=== PATIENT | male | born 1955 | race African-American/Black ===

== ENCOUNTER 2021-04-29 15:55 | Inpatient (IN) ==
[2021-04-29 16:15] LABS: Basophils % 0.3 % (0.0-0.8); Eosinophils # 0.4 10*3/uL (0.0-0.87); Eosinophils % 5.5 % (0.00-10.9); Hematocrit 35.9 VOL% (42.0-52.0); Hemoglobin 11.6 GM/DL (14.0-18.0); Immature Granulocytes % 0.4 %; Immature Granulocytes Absolute 0.03 #; Lymphocytes # 1.3 10*3/uL (1.4-4.0); Lymphocytes % 18.8 % (21.2-54.2); Mean Corpuscular HGB Conc 32.3 GM/DL (32-36); Mean Corpuscular Volume 93.2 FL (87-102); Mean Platelet Volume 11.1 FL (9.6-12.0); Monocytes % 9.9 % (1.7-12.7); Neutrophils % 65.1 % (38.7-73.9); Platelet Count 240 T/CUMM (130-400); Red Blood Count 3.85 MC/CUMM (3.8-5.5); White Blood Count 7.1 T/CUMM (4-12)
[2021-04-29 16:42] LABS: Albumin 3.8 G/DL (3.4-5.0); Bilirubin,Total 0.5 MG/DL (0.2-1.0); Calcium 9.8 MG/DL (8.5-10.1); Osmolality,Calculated 277.1 MOS/KG (273-304); Potassium 3.8 MMOL/L (3.5-5.1); Total Protein 8.9 G/DL (6.4-8.2)
[2021-04-29] MEDS ORDERED: ACETAMINOPHEN 325 MG TABLET PO PRN (23:19)
[2021-04-29] MEDS: hydrALAZINE 25 MG TABLET PO SCH (23:26)
[2021-04-30 02:04] LABS: Basophils % 0.4 % (0.0-0.8); Eosinophils # 0.3 10*3/uL (0.0-0.87); Eosinophils % 4.9 % (0.00-10.9); Hematocrit 31.3 VOL% (42.0-52.0); Hemoglobin 10.3 GM/DL (14.0-18.0); Immature Granulocytes % 0.1 %; Immature Granulocytes Absolute 0.01 #; Lymphocytes # 1.2 10*3/uL (1.4-4.0); Lymphocytes % 17.4 % (21.2-54.2); Mean Corpuscular HGB Conc 32.9 GM/DL (32-36); Mean Corpuscular Volume 92.6 FL (87-102); Mean Platelet Volume 11.4 FL (9.6-12.0); Monocytes % 11.5 % (1.7-12.7); Neutrophils % 65.7 % (38.7-73.9); Platelet Count 214 T/CUMM (130-400); Red Blood Count 3.38 MC/CUMM (3.8-5.5); Red Cell Distribution Width 15.9 % (9.3-17.3); White Blood Count 6.9 T/CUMM (4-12)
[2021-04-30 02:19] LABS: Osmolality,Calculated 279.1 MOS/KG (273-304); Potassium 4.4 MMOL/L (3.5-5.1)
[2021-04-30] MEDS ORDERED: DIAZEPAM 5 MG TABLET PO ONE (07:15)
[2021-04-30] MEDS ORDERED: VANCOMYCIN 500 MG VIAL IRRIG ONE (07:15)
[2021-04-30] MEDS ORDERED: VANCOMYCIN INJ 1,000 MG in SODIUM CHLORIDE 0.9% 250 ML IV ONE (07:15)
[2021-04-30] MEDS ORDERED: diphenhydrAMINE CAP 50 MG CAPSULE PO ONE (07:15)
[2021-04-30] MEDS ORDERED: HEPARIN IV ONE (07:54)
[2021-04-30] MEDS ORDERED: MIDAZOLAM 2 MG/2 ML VIAL ONE (07:54)
[2021-04-30] MEDS ORDERED: LIDOCAINE 1% 20 ML VIAL ONE (07:54)
[2021-04-30] MEDS ORDERED: fentaNYL 100 MCG/2 ML VIAL ONE (07:54)
[2021-04-30] MEDS ORDERED: NACL IV ONE (07:54)
[2021-04-30] MEDS: amLODIPine 10 MG TABLET PO SCH (08:06)
[2021-04-30] MEDS: CINACALCET 30 MG TABLET PO SCH (08:06)
[2021-04-30] MEDS: PANTOPRAZOLE 40 MG TABLET PO SCH (08:06)
[2021-04-30] MEDS ORDERED: DEXTROSE 50% 25 GM/50 ML VIAL IV PRN (09:13)
[2021-04-30] MEDS ORDERED: GLUCAGON 1 MG VIAL IM PRN (09:13)
[2021-04-30] MEDS ORDERED: ZALEPLON 5 MG CAPSULE PO PRN (09:13)
[2021-04-30] MEDS ORDERED: ONDANSETRON 4 MG/2 ML VIAL IV PRN (09:13)
[2021-04-30] MEDS ORDERED: NITROGLYCERIN SL 0.4 MG TABLET SL PRN (09:13)
[2021-04-30] MEDS: SEVELAMER CARBONATE 800 MG TABLET PO SCH ×3 (10:05→16:19)
[2021-04-30] MEDS: hydrALAZINE 25 MG TABLET PO SCH ×3 (10:22→21:02)
[2021-04-30] MEDS: INSULIN GLARGINE 100 UNIT/ML SUBCUT SCH (12:05)
[2021-04-30] MEDS: ROSUVASTATIN 20 MG TABLET PO SCH (21:02)
[2021-05-01 04:28] LABS: Basophils % 0.4 % (0.0-0.8); Eosinophils # 0.3 10*3/uL (0.0-0.87); Eosinophils % 3.7 % (0.00-10.9); Hematocrit 35.1 VOL% (42.0-52.0); Hemoglobin 11.5 GM/DL (14.0-18.0); Immature Granulocytes % 0.2 %; Immature Granulocytes Absolute 0.02 #; Lymphocytes % 12.7 % (21.2-54.2); Mean Corpuscular HGB Conc 32.8 GM/DL (32-36); Mean Corpuscular Volume 92.4 FL (87-102); Mean Platelet Volume 11.6 FL (9.6-12.0); Monocytes % 7.8 % (1.7-12.7); Neutrophils % 75.2 % (38.7-73.9); Platelet Count 241 T/CUMM (130-400); Red Cell Distribution Width 15.9 % (9.3-17.3); White Blood Count 8.1 T/CUMM (4-12)
[2021-05-01 04:43] LABS: Calcium 8.9 MG/DL (8.5-10.1); Potassium 5.2 MMOL/L (3.5-5.1)
[2021-05-01] MEDS: CINACALCET 30 MG TABLET PO SCH (09:00)
[2021-05-01] MEDS: ASPIRIN EC 81 MG TABLET PO SCH (09:08)
[2021-05-01] MEDS: hydrALAZINE 25 MG TABLET PO SCH ×3 (09:09→20:29)
[2021-05-01] MEDS: amLODIPine 10 MG TABLET PO SCH (09:09)
[2021-05-01] MEDS: PANTOPRAZOLE 40 MG TABLET PO SCH (09:09)
[2021-05-01] MEDS: INSULIN GLARGINE 100 UNIT/ML SUBCUT SCH (09:15)
[2021-05-01] MEDS: SEVELAMER CARBONATE 800 MG TABLET PO SCH ×3 (09:15→16:14)
[2021-05-01] MEDS ORDERED: DOCUSATE SODIUM 100 MG CAPSULE PO PRN (18:05)
[2021-05-01] MEDS: ROSUVASTATIN 20 MG TABLET PO SCH (20:30)
[2021-05-02 04:43] LABS: Basophils % 0.5 % (0.0-0.8); Eosinophils # 0.4 10*3/uL (0.0-0.87); Eosinophils % 5.2 % (0.00-10.9); Hematocrit 32.4 VOL% (42.0-52.0); Hemoglobin 10.8 GM/DL (14.0-18.0); Immature Granulocytes % 0.4 %; Immature Granulocytes Absolute 0.03 #; Lymphocytes # 1.5 10*3/uL (1.4-4.0); Lymphocytes % 18.1 % (21.2-54.2); Mean Corpuscular HGB Conc 33.3 GM/DL (32-36); Mean Corpuscular Volume 91.8 FL (87-102); Mean Platelet Volume 11.1 FL (9.6-12.0); Monocytes % 10.7 % (1.7-12.7); Neutrophils % 65.1 % (38.7-73.9); Platelet Count 210 T/CUMM (130-400); Red Blood Count 3.53 MC/CUMM (3.8-5.5); Red Cell Distribution Width 15.9 % (9.3-17.3); White Blood Count 8.5 T/CUMM (4-12)
[2021-05-02 04:47] LABS: ABG Base Excess 6.5 MMOL/L (-2.5-2.5); ABG HCO3 30.4 MMOL/L (20-26); ABG Oxygen Saturation 96.9 % (95-100); ABG PCO2 42.7 MM HG (35-48); ABG PH 7.468 (7.35-7.45); ABG PO2 91.9 MM HG (80-95); ABG TCO2 27.8 MMOL/L (23-27); Allen Test Positive; Pt O2 Delivery Device Room Air
[2021-05-02 05:08] LABS: Alanine Aminotransferase 9 U/L (16-61); Albumin 2.9 G/DL (3.4-5.0); Alkaline Phosphatase 77 U/L (45-117); Aspartate Amino Transferase 8 U/L (0-37); Blood Urea Nitrogen 64 MG/DL (7-18); Calcium 8.8 MG/DL (8.5-10.1); Carbon Dioxide 30 MMOL/L (21-32); Estimated Glom Filtration Rate 5 ML/MIN; Glucose 77 MG/DL (74-106); Potassium 5.2 MMOL/L (3.5-5.1); Sodium 136 MMOL/L (136-145); Total Protein 7.5 G/DL (6.4-8.2)
[2021-05-02] MEDS: SEVELAMER CARBONATE 800 MG TABLET PO SCH ×3 (08:25→17:30)
[2021-05-02] MEDS: amLODIPine 10 MG TABLET PO SCH (08:26)
[2021-05-02] MEDS: ASPIRIN EC 81 MG TABLET PO SCH (08:26)
[2021-05-02] MEDS: PANTOPRAZOLE 40 MG TABLET PO SCH (08:26)
[2021-05-02] MEDS: hydrALAZINE 25 MG TABLET PO SCH ×3 (08:27→20:05)
[2021-05-02] MEDS: CINACALCET 30 MG TABLET PO SCH (08:27)
[2021-05-02] MEDS: CHLORHEXIDINE 0.12% ORAL RINSE 60 ML BOTTLE SWISH/SPIT SCH ×2 (10:31→20:05)
[2021-05-02] MEDS: CHLORHEXIDINE 4% SOLN 118 ML BOTTLE TOP SCH ×2 (17:45→20:06)
[2021-05-02] MEDS: INSULIN REGULAR 100 UNIT/ML SUBCUT SCH ×3 (18:31→20:05)
[2021-05-02] MEDS: ROSUVASTATIN 20 MG TABLET PO SCH (20:05)
[2021-05-03] MEDS ORDERED: PAPAVERINE 60 MG/2 ML VIAL ONE (04:19)
[2021-05-03] MEDS ORDERED: VANCOMYCIN 500 MG VIAL ONE (04:20)
[2021-05-03] MEDS ORDERED: VANCOMYCIN 1,000 MG VIAL ONE (04:20)
[2021-05-03] MEDS: CHLORHEXIDINE 4% SOLN 118 ML BOTTLE TOP SCH (05:00)
[2021-05-03] MEDS ORDERED: CEFUROXIME INJ 1,500 MG in SODIUM CHLORIDE 0.9% 100 ML IV ONE (05:00)
[2021-05-03 05:04] LABS: Basophils # 0.1 10*3/uL (0.0-0.2); Basophils % 0.6 % (0.0-0.8); Eosinophils # 0.4 10*3/uL (0.0-0.87); Hematocrit 35.6 VOL% (42.0-52.0); Hemoglobin 11.5 GM/DL (14.0-18.0); Immature Granulocytes % 0.4 %; Immature Granulocytes Absolute 0.03 #; Lymphocytes # 1.2 10*3/uL (1.4-4.0); Lymphocytes % 14.4 % (21.2-54.2); Mean Corpuscular HGB Conc 32.3 GM/DL (32-36); Mean Corpuscular Volume 93.4 FL (87-102); Mean Platelet Volume 12.3 FL (9.6-12.0); Monocytes % 9.6 % (1.7-12.7); Platelet Count 230 T/CUMM (130-400); Red Blood Count 3.81 MC/CUMM (3.8-5.5); Red Cell Distribution Width 15.8 % (9.3-17.3); White Blood Count 8.2 T/CUMM (4-12)
[2021-05-03 05:31] LABS: Calcium 9.7 MG/DL (8.5-10.1); Osmolality,Calculated 276.2 MOS/KG (273-304); Potassium 4.9 MMOL/L (3.5-5.1)
[2021-05-03] MEDS ORDERED: NITROGLYCERIN DRIP 50 MG/250 ML BOTTLE IV ONE (05:37)
[2021-05-03] MEDS ORDERED: HEPARIN/NACL 0.9% 2 UNITS/ML 1,000 UNIT/500 ML BAG IV ONE (05:37)
[2021-05-03] MEDS ORDERED: SODIUM CHLORIDE 0.9% 2,000 ML IV ONE ×2 (05:37→11:36)
[2021-05-03] MEDS ORDERED: PHENYLEPHRINE DRIP 20 MG/250 ML PREMIX IV ONE (05:37)
[2021-05-03] MEDS ORDERED: MIDAZOLAM 10 MG/2 ML VIAL ONE ×4 (05:38)
[2021-05-03] MEDS ORDERED: AMINOCAPROIC ACID 5,000 MG/20 ML VIAL ONE (05:42)
[2021-05-03] MEDS ORDERED: SODIUM CHLORIDE 0.9% 250 ML IV ONE ×3 (05:42→17:06)
[2021-05-03] MEDS ORDERED: DIAZEPAM 5 MG TABLET PO ONE (05:45)
[2021-05-03] MEDS ORDERED: SODIUM CHLORIDE 0.9% 100 ML IV ONE (05:47)
[2021-05-03] MEDS ORDERED: SUFentanil 250 MCG/5 ML AMP ONE ×4 (05:47)
[2021-05-03] MEDS ORDERED: VECURONIUM 10 MG VIAL IV ONE ×2 (05:57→11:39)
[2021-05-03] MEDS ORDERED: LIDOCAINE 2% 5 ML VIAL ONE ×2 (06:02→12:54)
[2021-05-03] MEDS ORDERED: ETOMIDATE 40 MG/20 ML VIAL IV ONE (06:03)
[2021-05-03] MEDS ORDERED: ePHEDrine 50 MG/ML VIAL ONE (06:07)
[2021-05-03] MEDS ORDERED: EPINEPHrine 1 MG/ML VIAL ONE (06:08)
[2021-05-03] MEDS ORDERED: CALCIUM CHLORIDE 1,000 MG/10 ML VIAL IV ONE (06:13)
[2021-05-03] MEDS ORDERED: MINERAL OIL/PETROLATUM OPH OINT 3.5 GM TUBE ONE (06:16)
[2021-05-03] MEDS: amLODIPine 10 MG TABLET PO SCH (09:05)
[2021-05-03] MEDS: SEVELAMER CARBONATE 800 MG TABLET PO SCH ×2 (09:05→12:12)
[2021-05-03] MEDS: CHLORHEXIDINE 0.12% ORAL RINSE 60 ML BOTTLE SWISH/SPIT SCH ×2 (09:05→21:38)
[2021-05-03] MEDS: CINACALCET 30 MG TABLET PO SCH (09:05)
[2021-05-03] MEDS: hydrALAZINE 25 MG TABLET PO SCH (09:05)
[2021-05-03] MEDS: INSULIN REGULAR 100 UNIT/ML SUBCUT SCH ×2 (09:05→12:12)
[2021-05-03] MEDS: PANTOPRAZOLE 40 MG TABLET PO SCH (09:05)
[2021-05-03] MEDS: ASPIRIN EC 81 MG TABLET PO SCH (09:05)
[2021-05-03 09:24] LABS: Hematocrit Heart Surgery 18.1 PERCENT (42-52); PH Patient Temp Venous 7.481; PO2 Patient Temp Venous 51.9 MM HG; VBG Base Excess -8.8 MEQ/L (0-4); VBG HCO3 17.1 MEQ/L (24-28); VBG Oxygen Saturation 85.6 %; VBG PCO2 18.8 MMHG (41-51); VBG PH 7.481; VBG PO2 51.9 MMHG (17-40); VBG Total CO2 13.5 MMOL/L
[2021-05-03 09:25] LABS: PCO2 Patient Temp Venous 18.8 MM HG
[2021-05-03 09:26] LABS: Hemoglobin Heart Surgery 5.7 G/DL (14.0-18.0); Potassium Heart/CVR 2.3 MMOL/L (3.5-5.1)
[2021-05-03] MEDS ORDERED: CALCIUM CHLORIDE 1,000 MG/10 ML SYRINGE IV ONE (09:31)
[2021-05-03] MEDS ORDERED: SODIUM BICARBONATE 50 MEQ/50 ML VIAL IV ONE ×2 (09:31→12:55)
[2021-05-03] MEDS ORDERED: PHENYLEPHRINE DRIP 40 MG/250 ML PREMIX IV ONE (09:31)
[2021-05-03] MEDS ORDERED: EPINEPHrine 1 MG/10 ML SYRINGE ONE (09:47)
[2021-05-03] MEDS ORDERED: ALBUMIN IV ONE (09:47)
[2021-05-03 10:16] LABS: ABG Base Excess 2.8 MMOL/L (-2.5-2.5); ABG HCO3 25.9 MMOL/L (20-26); ABG Oxygen Saturation 99.1 % (95-100); ABG PO2 266.3 MM HG (80-95); Glucose Heart Surgery 91 MG/DL (74-106); Hemoglobin Heart Surgery 9.9 G/DL (14.0-18.0); Ionized Calcium Arterial 1.06 MMOL/L (1.21-1.46); PO2 Patient Temp Arterial 266.3 MM HG; Patient Temperature 37 CELCIUS; Potassium Heart/CVR 4.8 MMOL/L (3.5-5.1); Sodium Heart/CVR 133 MMOL/L (135-145)
[2021-05-03] MEDS ORDERED: diphenhydrAMINE 50 MG/1 ML VIAL ONE (10:28)
[2021-05-03] MEDS ORDERED: methylPREDNISolone SOD SUC 125 MG/2 ML VIAL ONE (10:28)
[2021-05-03] MEDS ORDERED: FAMOTIDINE 20 MG/2 ML VIAL IV ONE (10:29)
[2021-05-03 11:19] LABS: Hematocrit Heart Surgery 22.3 PERCENT (42-52); Hemoglobin Heart Surgery 7.1 G/DL (14.0-18.0); PCO2 Patient Temp Venous 31.6 MM HG; PH Patient Temp Venous 7.503; PO2 Patient Temp Venous 34.6 MM HG; Potassium Heart/CVR 5.1 MMOL/L (3.5-5.1); VBG PCO2 36.6 MMHG (41-51); VBG PH 7.458; VBG PO2 42.6 MMHG (17-40); VBG Total CO2 24.4 MMOL/L
[2021-05-03 11:51] LABS: Hematocrit Heart Surgery 24.3 PERCENT (42-52); Hemoglobin Heart Surgery 7.8 G/DL (14.0-18.0); PCO2 Patient Temp Venous 30.1 MM HG; PH Patient Temp Venous 7.479; Potassium Heart/CVR 4.6 MMOL/L (3.5-5.1); VBG Base Excess -0.6 MEQ/L (0-4); VBG HCO3 23.6 MEQ/L (24-28); VBG Oxygen Saturation 72.3 %; VBG PCO2 33.2 MMHG (41-51); VBG PH 7.449; VBG PO2 41.4 MMHG (17-40); VBG Total CO2 21.6 MMOL/L
[2021-05-03 12:45] LABS: ABG Base Excess 0.8 MMOL/L (-2.5-2.5); ABG HCO3 25.2 MMOL/L (20-26); ABG Oxygen Saturation 99.5 % (95-100); ABG PCO2 37.2 MM HG (35-48); ABG PH 7.434 (7.35-7.45); ABG TCO2 23.4 MMOL/L (23-27); Glucose Heart Surgery 156 MG/DL (74-106); Hematocrit Heart Surgery 23.8 PERCENT (42-52); Hemoglobin Heart Surgery 7.6 G/DL (14.0-18.0); Ionized Calcium Arterial 1.15 MMOL/L (1.21-1.46); PCO2 Patient Temp Arterial 37.2 MMHG; PH Patient Temp Arterial 7.434; Patient Temperature 37 CELCIUS; Potassium Heart/CVR 4.6 MMOL/L (3.5-5.1); Sodium Heart/CVR 137 MMOL/L (135-145)
[2021-05-03] MEDS ORDERED: THROMBIN TOPICAL (RECOMBINANT) 5,000 UNIT VIAL TOP ONE (12:47)
[2021-05-03] MEDS ORDERED: MANNITOL 100 GM/500 ML BAG IV ONE (12:54)
[2021-05-03] MEDS ORDERED: methylPREDNISolone SOD SUC 1,000 MG/8 ML VIAL ONE (12:54)
[2021-05-03] MEDS ORDERED: ALBUMIN 25% 25 GM/100 ML VIAL IV ONE (12:54)
[2021-05-03] MEDS ORDERED: DEXTROSE 5% KCL 20 MEQ 20 MEQ/1,000 ML BAG IV ONE (12:54)
[2021-05-03] MEDS ORDERED: MAGNESIUM SULFATE 5 GM/10 ML VIAL IV ONE (12:54)
[2021-05-03] MEDS ORDERED: HEPARIN 10,000 UNIT/10 ML VIAL ONE (12:55)
[2021-05-03] MEDS ORDERED: PROTAMINE SULFATE 250 MG/25 ML VIAL IV ONE (12:55)
[2021-05-03] MEDS ORDERED: PROTAMINE SULFATE 50 MG/5 ML VIAL IV ONE (12:55)
[2021-05-03] MEDS ORDERED: SEVOFLURANE 1 UNIT/15 MINUTE INH ONE (13:35)
[2021-05-03] MEDS: SODIUM CHLORIDE 0.45% 1,000 ML IV SCH ×2 (14:05)
[2021-05-03] MEDS ORDERED: POTASSIUM CHLORIDE RIDER 20 MEQ/100 ML PREMIX IV PRN (14:20)
[2021-05-03] MEDS ORDERED: INSULIN REGULAR DRIP 100 ML IV SCH (14:20)
[2021-05-03] MEDS ORDERED: MAGNESIUM SULF RIDER 4 GM/100 ML PREMIX IV PRN (14:20)
[2021-05-03] MEDS ORDERED: PHENYLEPHRINE DRIP 40 MG/250 ML PREMIX IV PRN (14:20)
[2021-05-03] MEDS ORDERED: NITROPRUSSIDE 100 MG in DEXTROSE 5% 250 ML IV PRN (14:20)
[2021-05-03] MEDS ORDERED: POTASSIUM CHLORIDE RIDER 10 MEQ/100 ML PREMIX IV PRN (14:20)
[2021-05-03] MEDS ORDERED: VECURONIUM 10 MG VIAL IV PRN ×2 (14:20)
[2021-05-03] MEDS ORDERED: CALCIUM CHLORIDE 1,000 MG/10 ML SYRINGE IV PRN (14:20)
[2021-05-03] MEDS ORDERED: INSULIN REGULAR 100 UNIT/ML IV PRN (14:20)
[2021-05-03] MEDS ORDERED: MAGNESIUM SULF RIDER 2 GM/50 ML PREMIX IV PRN (14:20)
[2021-05-03] MEDS ORDERED: CHLORHEXIDINE 4% SOLN 118 ML BOTTLE TOP PRN (14:20)
[2021-05-03] MEDS ORDERED: MIDAZOLAM 2 MG/2 ML VIAL IV PRN (14:20)
[2021-05-03] MEDS ORDERED: DEXTROSE 50% 25 GM/50 ML VIAL IV PRN ×2 (14:20)
[2021-05-03] MEDS ORDERED: LACTATED RINGERS 250 ML IV PRN (14:20)
[2021-05-03] MEDS ORDERED: ACETAMINOPHEN 650 MG SUPP RECTAL PRN (14:20)
[2021-05-03] MEDS ORDERED: MIDAZOLAM 10 MG/2 ML VIAL IV PRN (14:20)
[2021-05-03] MEDS ORDERED: MORPHINE 10 MG/1 ML VIAL IV PRN (14:20)
[2021-05-03] MEDS ORDERED: INSULIN REGULAR 100 UNIT/ML IV ONE (14:20)
[2021-05-03 14:39] LABS: Basophils % 0.3 % (0.0-0.8); Eosinophils # 0.1 10*3/uL (0.0-0.87); Eosinophils % 0.4 % (0.00-10.9); Hematocrit 23.2 VOL% (42.0-52.0); Hemoglobin 7.2 GM/DL (14.0-18.0); Immature Granulocytes % 0.7 %; Immature Granulocytes Absolute 0.08 #; Lymphocytes # 0.5 10*3/uL (1.4-4.0); Lymphocytes % 4.6 % (21.2-54.2); Mean Corpuscular Volume 96.3 FL (87-102); Monocytes % 6.8 % (1.7-12.7); Neutrophils % 87.2 % (38.7-73.9); Platelet Count 200 T/CUMM (130-400); Red Blood Count 2.41 MC/CUMM (3.8-5.5); Red Cell Distribution Width 15.9 % (9.3-17.3); White Blood Count 11.7 T/CUMM (4-12)
[2021-05-03 14:47] LABS: INR 1.3; PT Patient Result 13.9 SECS (10.5-12.0); Partial Thromboplastin Time 27.6 SECS (23.9-33.8)
[2021-05-03 15:04] LABS: ABG Base Excess 0.7 MMOL/L (-2.5-2.5); ABG HCO3 25.1 MMOL/L (20-26); ABG Oxygen Saturation 99.6 % (95-100); ABG PCO2 30.9 MM HG (35-48); ABG PH 7.493 (7.35-7.45); ABG TCO2 22.3 MMOL/L (23-27); Glucose Heart Surgery 134 MG/DL (74-106); Hematocrit Heart Surgery 22.3 PERCENT (42-52); Hemoglobin Heart Surgery 7.1 G/DL (14.0-18.0); Potassium Heart/CVR 4.6 MMOL/L (3.5-5.1)
[2021-05-03 15:07] LABS: Albumin 2.8 G/DL (3.4-5.0); Bilirubin,Total 0.8 MG/DL (0.2-1.0); Calcium 8.5 MG/DL (8.5-10.1); Osmolality,Calculated 286.5 MOS/KG (273-304); Potassium 4.7 MMOL/L (3.5-5.1); Total Protein 6.4 G/DL (6.4-8.2)
[2021-05-03 15:14] LABS: CKMB % 7.1 %
[2021-05-03 15:17] LABS: High Sensitive Troponin I* 7156.8 ng/L (0-78)
[2021-05-03] MEDS: ALBUMIN 5% 12.5 GM/250 ML VIAL IV PRN ×2 (15:44→21:38)
[2021-05-03 17:14] LABS: ABG Base Excess -1.1 MMOL/L (-2.5-2.5); ABG HCO3 23.5 MMOL/L (20-26); ABG Oxygen Saturation 99.4 % (95-100); ABG PCO2 28.8 MM HG (35-48); ABG PH 7.486 (7.35-7.45); ABG TCO2 20.3 MMOL/L (23-27); Glucose Heart Surgery 165 MG/DL (74-106); Hematocrit Heart Surgery 23.5 PERCENT (42-52); Hemoglobin Heart Surgery 7.5 G/DL (14.0-18.0); Potassium Heart/CVR 5.3 MMOL/L (3.5-5.1)
[2021-05-03] MEDS ORDERED: SODIUM CHLORIDE 0.9% 250 ML IV PRN (18:22)
[2021-05-03] MEDS: CEFUROXIME INJ 1,500 MG in SODIUM CHLORIDE 0.9% 100 ML IV SCH (18:34)
[2021-05-03 20:13] LABS: ABG Base Excess -1.7 MMOL/L (-2.5-2.5); ABG PCO2 33.3 MM HG (35-48); ABG PH 7.427 (7.35-7.45); ABG TCO2 19.7 MMOL/L (23-27); Glucose Heart Surgery 192 MG/DL (74-106); Hematocrit Heart Surgery 33.7 PERCENT (42-52); Hemoglobin Heart Surgery 10.9 G/DL (14.0-18.0); Potassium Heart/CVR 5.8 MMOL/L (3.5-5.1)
[2021-05-03 20:40] LABS: CKMB % 6.3 %
[2021-05-03 20:48] LABS: High Sensitive Troponin I* 10381.9 ng/L (0-78)
[2021-05-03] MEDS: MORPHINE 4 MG/1 ML VIAL IV PRN (22:50)
[2021-05-04] MEDS: INSULIN REGULAR 100 UNIT/ML SUBCUT SCH ×5 (00:31→20:26)
[2021-05-04 01:17] LABS: ABG Base Excess -3.3 MMOL/L (-2.5-2.5); ABG HCO3 21.7 MMOL/L (20-26); ABG Oxygen Saturation 98.9 % (95-100); ABG PCO2 37.7 MM HG (35-48); ABG PH 7.366 (7.35-7.45)
[2021-05-04 01:18] LABS: Glucose Heart Surgery 217 MG/DL (74-106); Hematocrit Heart Surgery 39.1 PERCENT (42-52); Hemoglobin Heart Surgery 12.7 G/DL (14.0-18.0)
[2021-05-04 01:26] LABS: Potassium Heart/CVR 6.3 MMOL/L (3.5-5.1)
[2021-05-04 02:57] LABS: ABG HCO3 21.1 MMOL/L (20-26); ABG Oxygen Saturation 98.7 % (95-100); ABG PCO2 37.1 MM HG (35-48); ABG TCO2 19.3 MMOL/L (23-27); Glucose Heart Surgery 233 MG/DL (74-106); Hematocrit Heart Surgery 28.9 PERCENT (42-52); Hemoglobin Heart Surgery 9.3 G/DL (14.0-18.0)
[2021-05-04 03:00] LABS: Potassium Heart/CVR 6.4 MMOL/L (3.5-5.1)
[2021-05-04 04:22] LABS: ABG Base Excess -2.8 MMOL/L (-2.5-2.5); ABG HCO3 21.7 MMOL/L (20-26); ABG PCO2 36.4 MM HG (35-48); ABG PH 7.393 (7.35-7.45); ABG TCO2 22.8 MMOL/L (23-27); Glucose Heart Surgery 220 MG/DL (74-106); Hemoglobin Heart Surgery 9.3 G/DL (14.0-18.0)
[2021-05-04 04:25] LABS: Potassium Heart/CVR 6.7 MMOL/L (3.5-5.1)
[2021-05-04 04:31] LABS: Immature Granulocytes % 0.4 %; Immature Granulocytes Absolute 0.04 #; Lymphocytes # 0.3 10*3/uL (1.4-4.0); Lymphocytes % 3.2 % (21.2-54.2); Mean Corpuscular HGB Conc 31.4 GM/DL (32-36); Mean Corpuscular Volume 92.4 FL (87-102); Mean Platelet Volume 12.5 FL (9.6-12.0); Monocytes % 4.8 % (1.7-12.7); Neutrophils % 91.6 % (38.7-73.9); Platelet Count 198 T/CUMM (130-400); Red Cell Distribution Width 17.1 % (9.3-17.3)
[2021-05-04 04:51] LABS: Hemoglobin 8.8 GM/DL (14.0-18.0); Red Blood Count 3.03 MC/CUMM (3.8-5.5)
[2021-05-04 04:53] LABS: Albumin 3.2 G/DL (3.4-5.0); Bilirubin,Direct 0.27 MG/DL (0.0-0.20); Bilirubin,Total 0.6 MG/DL (0.2-1.0); Calcium 9.3 MG/DL (8.5-10.1); Osmolality,Calculated 284.4 MOS/KG (273-304); Total Protein 7.2 G/DL (6.4-8.2)
[2021-05-04 04:55] LABS: Potassium 6.7 MMOL/L (3.5-5.1)
[2021-05-04 05:03] LABS: Band Neutrophils 2 % (0-10); Hypochromasia 1+; Lymphocytes 3 % (20-55); Segmented Neutrophils 90 % (50-85); Total Cells Counted 100
[2021-05-04 05:04] LABS: Microcytosis 1+; Ovalocytes Slight
[2021-05-04 05:05] LABS: Platelet Estimate Adequate
[2021-05-04 05:29] LABS: ABG Base Excess -5.1 MMOL/L (-2.5-2.5); ABG HCO3 20.2 MMOL/L (20-26); ABG Oxygen Saturation 98.3 % (95-100); ABG PCO2 37.7 MM HG (35-48); ABG PH 7.337 (7.35-7.45); ABG TCO2 18.7 MMOL/L (23-27); Glucose Heart Surgery 223 MG/DL (74-106); Hematocrit Heart Surgery 28.7 PERCENT (42-52); Hemoglobin Heart Surgery 9.3 G/DL (14.0-18.0)
[2021-05-04] MEDS ORDERED: SODIUM ZIRCONIUM CYCLOSILICATE 10 GM PACK PO ONE (05:30)
[2021-05-04 05:31] LABS: Potassium Heart/CVR 6.2 MMOL/L (3.5-5.1)
[2021-05-04 06:26] LABS: ABG Base Excess -5.4 MMOL/L (-2.5-2.5); ABG Oxygen Saturation 98.6 % (95-100); ABG PH 7.338 (7.35-7.45); ABG TCO2 18.4 MMOL/L (23-27); Glucose Heart Surgery 219 MG/DL (74-106); Hematocrit Heart Surgery 28.6 PERCENT (42-52); Hemoglobin Heart Surgery 9.2 G/DL (14.0-18.0)
[2021-05-04 06:32] LABS: Potassium Heart/CVR 6.3 MMOL/L (3.5-5.1)
[2021-05-04] MEDS: ONDANSETRON 4 MG/2 ML VIAL IV PRN (07:05)
[2021-05-04] MEDS: CEFUROXIME INJ 1,500 MG in SODIUM CHLORIDE 0.9% 100 ML IV SCH ×2 (07:36→18:24)
[2021-05-04 07:37] LABS: CKMB % 8.1 %
[2021-05-04] MEDS: CHLORHEXIDINE 0.12% ORAL RINSE 60 ML BOTTLE SWISH/SPIT SCH ×2 (08:08→20:26)
[2021-05-04] MEDS: PANTOPRAZOLE 40 MG TABLET PO SCH (09:36)
[2021-05-04] MEDS: ASPIRIN EC 325 MG TABLET PO SCH (09:36)
[2021-05-04] MEDS: oxyCODONE/ACETAMINOPHEN 5-325 MG TABLET PO PRN (13:04)
[2021-05-04] MEDS: SODIUM CHLORIDE 0.45% 1,000 ML IV SCH ×2 (14:41)
[2021-05-04 15:13] LABS: CKMB % 7.8 %
[2021-05-04] MEDS ORDERED: KETOROLAC 15 MG/1 ML VIAL IV PRN (17:52)
[2021-05-04] MEDS ORDERED: KETOROLAC 30 MG/1 ML VIAL IV PRN (18:05)
[2021-05-05 04:12] LABS: Basophils % 0.1 % (0.0-0.8); Hemoglobin 8.3 GM/DL (14.0-18.0); Immature Granulocytes % 0.3 %; Immature Granulocytes Absolute 0.02 #; Lymphocytes # 0.3 10*3/uL (1.4-4.0); Lymphocytes % 4.6 % (21.2-54.2); Mean Corpuscular HGB Conc 31.9 GM/DL (32-36); Mean Corpuscular Volume 91.9 FL (87-102); Mean Platelet Volume 12.5 FL (9.6-12.0); Monocytes % 14.1 % (1.7-12.7); Neutrophils % 80.9 % (38.7-73.9); Platelet Count 187 T/CUMM (130-400); Red Blood Count 2.83 MC/CUMM (3.8-5.5); Red Cell Distribution Width 17.3 % (9.3-17.3)
[2021-05-05] MEDS: MORPHINE 4 MG/1 ML VIAL IV PRN (04:27)
[2021-05-05 04:29] LABS: Albumin 3.1 G/DL (3.4-5.0); Bilirubin,Direct 0.18 MG/DL (0.0-0.20); Bilirubin,Total 0.5 MG/DL (0.2-1.0); Calcium 9.4 MG/DL (8.5-10.1); Osmolality,Calculated 278.1 MOS/KG (273-304); Potassium 5.8 MMOL/L (3.5-5.1); Total Protein 7.1 G/DL (6.4-8.2)
[2021-05-05 04:35] LABS: Band Neutrophils 1 % (0-10); Lymphocytes 6 % (20-55); Nucleated Red Blood Cells 1 (0-5); Platelet Estimate Adequate; Segmented Neutrophils 85 % (50-85); Total Cells Counted 100
[2021-05-05 04:36] LABS: Hypochromasia 1+; Microcytosis 1+
[2021-05-05] MEDS: ONDANSETRON 4 MG/2 ML VIAL IV PRN (04:56)
[2021-05-05] MEDS: allopurinoL 100 MG TABLET PO SCH (08:05)
[2021-05-05] MEDS: ASPIRIN EC 325 MG TABLET PO SCH (08:05)
[2021-05-05] MEDS: PANTOPRAZOLE 40 MG TABLET PO SCH (08:05)
[2021-05-05] MEDS: CHLORHEXIDINE 0.12% ORAL RINSE 60 ML BOTTLE SWISH/SPIT SCH (08:06)
[2021-05-05] MEDS: INSULIN REGULAR 100 UNIT/ML SUBCUT SCH ×4 (08:14→20:24)
[2021-05-05 09:16] LABS: CKMB % 5.6 %; High Sensitive Troponin I* 13104.9 ng/L (0-78)
[2021-05-05] MEDS: LATANOPROST 0.005% OPH SOLN 2.5 ML BOTTLE BOTH EYES SCH (10:31)
[2021-05-05] MEDS ORDERED: MAGNESIUM SULF RIDER 4 GM/100 ML PREMIX IV PRN (11:11)
[2021-05-05] MEDS: DOCUSATE SODIUM 100 MG CAPSULE PO SCH ×2 (11:11→20:25)
[2021-05-05] MEDS ORDERED: ZALEPLON 5 MG CAPSULE PO PRN (11:11)
[2021-05-05] MEDS ORDERED: DEXTROSE 50% 25 GM/50 ML VIAL IV PRN (11:11)
[2021-05-05] MEDS ORDERED: GLUCAGON 1 MG VIAL IM PRN (11:11)
[2021-05-05] MEDS ORDERED: MAGNESIUM SULF RIDER 2 GM/50 ML PREMIX IV PRN (11:11)
[2021-05-05] MEDS ORDERED: KETOROLAC 15 MG/1 ML VIAL IV PRN (11:11)
[2021-05-05] MEDS ORDERED: ALUMINUM/MAGNES/SIMETH MAX STR 30 ML UDCUP PO PRN (11:11)
[2021-05-05] MEDS ORDERED: POTASSIUM CHLORIDE 20 MEQ TABLET PO PRN (11:11)
[2021-05-05] MEDS ORDERED: MAGNESIUM HYDROXIDE SUSP 30 ML UDCUP PO PRN (11:11)
[2021-05-05] MEDS ORDERED: ONDANSETRON 4 MG/2 ML VIAL IV PRN (11:11)
[2021-05-05] MEDS ORDERED: ACETAMINOPHEN 325 MG TABLET PO PRN (11:11)
[2021-05-05] MEDS ORDERED: SODIUM CHLOR 0.45% KCL 20 MEQ 20 MEQ/1,000 ML BAG IV SCH (11:30)
[2021-05-05] MEDS ORDERED: ALBUMIN 25% 25 GM/100 ML VIAL IV ONE (13:35)
[2021-05-05 15:18] LABS: CKMB % 4.5 %
[2021-05-05 15:19] LABS: High Sensitive Troponin I* 12995.2 ng/L (0-78)
[2021-05-05] MEDS: ROSUVASTATIN 20 MG TABLET PO SCH (20:25)
[2021-05-05 21:35] LABS: CKMB % 4.8 %
[2021-05-05 21:38] LABS: High Sensitive Troponin I* 9875.8 ng/L (0-78)
[2021-05-05] MEDS: oxyCODONE/ACETAMINOPHEN 5-325 MG TABLET PO PRN (22:49)
[2021-05-06 03:48] LABS: Basophils % 0.1 % (0.0-0.8); Eosinophils # 0.1 10*3/uL (0.0-0.87); Eosinophils % 1.7 % (0.00-10.9); Hematocrit 24.2 VOL% (42.0-52.0); Hemoglobin 7.6 GM/DL (14.0-18.0); Immature Granulocytes % 0.6 %; Immature Granulocytes Absolute 0.04 #; Lymphocytes # 0.6 10*3/uL (1.4-4.0); Lymphocytes % 8.7 % (21.2-54.2); Mean Corpuscular HGB Conc 31.4 GM/DL (32-36); Mean Corpuscular Volume 93.1 FL (87-102); Mean Platelet Volume 12.1 FL (9.6-12.0); Monocytes % 14.2 % (1.7-12.7); Neutrophils % 74.7 % (38.7-73.9); Platelet Count 148 T/CUMM (130-400); White Blood Count 7.3 T/CUMM (4-12)
[2021-05-06 04:10] LABS: Band Neutrophils 1 % (0-10); Eosinophils 3 % (0-10); Hypochromasia 1+; Lymphocytes 7 % (20-55); Platelet Estimate Normal; Segmented Neutrophils 79 % (50-85); Total Cells Counted 100
[2021-05-06 04:13] LABS: Albumin 3.2 G/DL (3.4-5.0); Bilirubin,Direct 0.17 MG/DL (0.0-0.20); Bilirubin,Indirect 0.4 MG/DL (0.0-1.0); Bilirubin,Total 0.6 MG/DL (0.2-1.0); CKMB % 5.3 %; Calcium 9.2 MG/DL (8.5-10.1); Osmolality,Calculated 280.4 MOS/KG (273-304); Potassium 5.4 MMOL/L (3.5-5.1); Total Protein 7.2 G/DL (6.4-8.2)
[2021-05-06] MEDS ORDERED: ROSUVASTATIN 10 MG TABLET PO SCH (07:36)
[2021-05-06] MEDS ORDERED: LACTULOSE 20 GM/30 ML UDCUP PO PRN (07:54)
[2021-05-06] MEDS: ASPIRIN EC 325 MG TABLET PO SCH (09:30)
[2021-05-06] MEDS: FERROUS SULFATE 325 MG TABLET PO SCH (09:30)
[2021-05-06] MEDS: allopurinoL 100 MG TABLET PO SCH (09:30)
[2021-05-06] MEDS: POLYETHYLENE GLYCOL POWDER 17 GM PACK PO SCH (09:30)
[2021-05-06] MEDS: PANTOPRAZOLE 40 MG TABLET PO SCH (09:30)
[2021-05-06] MEDS: DOCUSATE SODIUM 100 MG CAPSULE PO SCH ×2 (09:30→20:59)
[2021-05-06] MEDS: oxyCODONE/ACETAMINOPHEN 5-325 MG TABLET PO PRN (13:10)
[2021-05-06] MEDS: INSULIN REGULAR 100 UNIT/ML SUBCUT SCH ×4 (15:55→20:59)
[2021-05-06] MEDS: LATANOPROST 0.005% OPH SOLN 2.5 ML BOTTLE BOTH EYES SCH (19:33)
[2021-05-06] MEDS: ROSUVASTATIN 20 MG TABLET PO SCH (20:59)
[2021-05-07 04:10] LABS: Basophils % 0.1 % (0.0-0.8); Eosinophils # 0.3 10*3/uL (0.0-0.87); Eosinophils % 3.2 % (0.00-10.9); Hematocrit 23.9 VOL% (42.0-52.0); Hemoglobin 7.5 GM/DL (14.0-18.0); Immature Granulocytes % 0.6 %; Immature Granulocytes Absolute 0.06 #; Lymphocytes # 1.1 10*3/uL (1.4-4.0); Mean Corpuscular HGB Conc 31.4 GM/DL (32-36); Mean Corpuscular Volume 95.2 FL (87-102); Mean Platelet Volume 11.8 FL (9.6-12.0); Monocytes % 12.7 % (1.7-12.7); NRBC # 0.02 10*3/uL; Neutrophils % 72.4 % (38.7-73.9); Platelet Count 171 T/CUMM (130-400); Red Blood Count 2.51 MC/CUMM (3.8-5.5); Red Cell Distribution Width 16.3 % (9.3-17.3); White Blood Count 10.1 T/CUMM (4-12)
[2021-05-07 04:29] LABS: Albumin 2.8 G/DL (3.4-5.0); Bilirubin,Direct 0.18 MG/DL (0.0-0.20); Bilirubin,Indirect 0.3 MG/DL (0.0-1.0); Bilirubin,Total 0.5 MG/DL (0.2-1.0); CKMB % 6.3 %; Calcium 9.3 MG/DL (8.5-10.1); Osmolality,Calculated 283.1 MOS/KG (273-304); Potassium 4.8 MMOL/L (3.5-5.1); Total Protein 7.3 G/DL (6.4-8.2)
[2021-05-07 04:30] LABS: High Sensitive Troponin I* 8279.1 ng/L (0-78)
[2021-05-07 04:39] LABS: Lymphocytes 10 % (20-55); Segmented Neutrophils 75 % (50-85); Total Cells Counted 100
[2021-05-07 04:40] LABS: Hypochromasia 1+; Microcytosis 1+; Platelet Estimate Adequate
[2021-05-07] MEDS: allopurinoL 100 MG TABLET PO SCH (08:27)
[2021-05-07] MEDS: ASPIRIN EC 325 MG TABLET PO SCH (08:27)
[2021-05-07] MEDS: DOCUSATE SODIUM 100 MG CAPSULE PO SCH ×2 (08:27→20:33)
[2021-05-07] MEDS: PANTOPRAZOLE 40 MG TABLET PO SCH (08:27)
[2021-05-07] MEDS: FERROUS SULFATE 325 MG TABLET PO SCH (08:28)
[2021-05-07] MEDS: oxyCODONE/ACETAMINOPHEN 5-325 MG TABLET PO PRN ×2 (11:35→20:38)
[2021-05-07] MEDS: POLYETHYLENE GLYCOL POWDER 17 GM PACK PO SCH (13:08)
[2021-05-07] MEDS: LATANOPROST 0.005% OPH SOLN 2.5 ML BOTTLE BOTH EYES SCH (13:08)
[2021-05-07] MEDS: INSULIN REGULAR 100 UNIT/ML SUBCUT SCH ×3 (13:08→20:33)
[2021-05-07] MEDS: ROSUVASTATIN 20 MG TABLET PO SCH (20:33)
[2021-05-08] MEDS: oxyCODONE/ACETAMINOPHEN 5-325 MG TABLET PO PRN ×2 (05:13→10:45)
[2021-05-08 05:36] LABS: Basophils % 0.2 % (0.0-0.8); Eosinophils # 0.4 10*3/uL (0.0-0.87); Eosinophils % 3.3 % (0.00-10.9); Hemoglobin 7.6 GM/DL (14.0-18.0); Immature Granulocytes % 1.7 %; Immature Granulocytes Absolute 0.18 #; Lymphocytes # 1.1 10*3/uL (1.4-4.0); Lymphocytes % 9.8 % (21.2-54.2); Mean Corpuscular HGB Conc 31.7 GM/DL (32-36); Mean Corpuscular Volume 94.5 FL (87-102); Mean Platelet Volume 11.4 FL (9.6-12.0); Monocytes % 10.6 % (1.7-12.7); NRBC # 0.02 10*3/uL; Neutrophils % 74.4 % (38.7-73.9); Platelet Count 224 T/CUMM (130-400); Red Blood Count 2.54 MC/CUMM (3.8-5.5); White Blood Count 10.8 T/CUMM (4-12)
[2021-05-08 05:47] LABS: Calcium 9.4 MG/DL (8.5-10.1); Osmolality,Calculated 283.1 MOS/KG (273-304); Potassium 4.7 MMOL/L (3.5-5.1)
[2021-05-08] MEDS: INSULIN REGULAR 100 UNIT/ML SUBCUT SCH ×4 (07:57→22:32)
[2021-05-08] MEDS: POLYETHYLENE GLYCOL POWDER 17 GM PACK PO SCH (10:20)
[2021-05-08] MEDS: DOCUSATE SODIUM 100 MG CAPSULE PO SCH ×2 (10:20→20:14)
[2021-05-08] MEDS: FERROUS SULFATE 325 MG TABLET PO SCH (10:20)
[2021-05-08] MEDS: allopurinoL 100 MG TABLET PO SCH (10:20)
[2021-05-08] MEDS: ASPIRIN EC 325 MG TABLET PO SCH (10:20)
[2021-05-08] MEDS: PANTOPRAZOLE 40 MG TABLET PO SCH (10:21)
[2021-05-08] MEDS: LATANOPROST 0.005% OPH SOLN 2.5 ML BOTTLE BOTH EYES SCH (10:22)
[2021-05-08] MEDS: ROSUVASTATIN 20 MG TABLET PO SCH (20:14)
[2021-05-09] MEDS: oxyCODONE/ACETAMINOPHEN 5-325 MG TABLET PO PRN ×2 (04:15→20:54)
[2021-05-09 05:40] LABS: Basophils % 0.2 % (0.0-0.8); Eosinophils # 0.4 10*3/uL (0.0-0.87); Eosinophils % 4.1 % (0.00-10.9); Hematocrit 23.3 VOL% (42.0-52.0); Hemoglobin 7.4 GM/DL (14.0-18.0); Immature Granulocytes % 1.6 %; Immature Granulocytes Absolute 0.17 #; Lymphocytes # 1.2 10*3/uL (1.4-4.0); Lymphocytes % 11.8 % (21.2-54.2); Mean Corpuscular HGB Conc 31.8 GM/DL (32-36); Mean Corpuscular Volume 94.3 FL (87-102); Monocytes % 10.4 % (1.7-12.7); NRBC # 0.02 10*3/uL; Neutrophils % 71.9 % (38.7-73.9); Platelet Count 241 T/CUMM (130-400); Red Blood Count 2.47 MC/CUMM (3.8-5.5); White Blood Count 10.5 T/CUMM (4-12)
[2021-05-09 06:01] LABS: Alanine Aminotransferase 43 U/L (16-61); Albumin 2.7 G/DL (3.4-5.0); Alkaline Phosphatase 120 U/L (45-117); Aspartate Amino Transferase 33 U/L (0-37); Bilirubin,Total < 0.39 MG/DL (0.2-1.0); Blood Urea Nitrogen 66 MG/DL (7-18); Calcium 9.6 MG/DL (8.5-10.1); Carbon Dioxide 25 MMOL/L (21-32); Estimated Glom Filtration Rate 7 ML/MIN; Glucose 77 MG/DL (74-106); Osmolality,Calculated 285.2 MOS/KG (273-304); Potassium 4.7 MMOL/L (3.5-5.1); Sodium 134 MMOL/L (136-145)
[2021-05-09 06:02] LABS: Bilirubin,Indirect 0.2 MG/DL (0.0-1.0)
[2021-05-09] MEDS ORDERED: diphenhydrAMINE CAP 25 MG CAPSULE PO ONE ×2 (07:28→14:00)
[2021-05-09] MEDS ORDERED: ceFAZolin 1,000 MG VIAL IRRIG ONE ×2 (07:28→14:00)
[2021-05-09] MEDS ORDERED: DIAZEPAM 5 MG TABLET PO ONE ×2 (07:28→14:00)
[2021-05-09] MEDS ORDERED: SODIUM CHLORIDE 0.9% 1,000 ML IV PRN (09:14)
[2021-05-09] MEDS: ASPIRIN EC 325 MG TABLET PO SCH (09:27)
[2021-05-09] MEDS: DOCUSATE SODIUM 100 MG CAPSULE PO SCH ×2 (09:27→20:54)
[2021-05-09] MEDS: FERROUS SULFATE 325 MG TABLET PO SCH (09:27)
[2021-05-09] MEDS: PANTOPRAZOLE 40 MG TABLET PO SCH (09:27)
[2021-05-09] MEDS: allopurinoL 100 MG TABLET PO SCH (09:27)
[2021-05-09] MEDS: POLYETHYLENE GLYCOL POWDER 17 GM PACK PO SCH (09:28)
[2021-05-09] MEDS ORDERED: VANCOMYCIN 500 MG VIAL IRRIG ONE (14:30)
[2021-05-09] MEDS ORDERED: VANCOMYCIN INJ 1,000 MG in SODIUM CHLORIDE 0.9% 250 ML IV ONE (14:30)
[2021-05-09] MEDS ORDERED: HEPARIN/NACL 0.9% 2 UNITS/ML 1,000 UNIT/500 ML BAG IV ONE (15:17)
[2021-05-09] MEDS ORDERED: TISSUE ADHESIVE 1 EACH APPLICATOR TOP ONE (15:17)
[2021-05-09] MEDS ORDERED: LIDOCAINE 1% 20 ML VIAL ONE (15:17)
[2021-05-09] MEDS ORDERED: fentaNYL 100 MCG/2 ML VIAL ONE (15:20)
[2021-05-09] MEDS ORDERED: MIDAZOLAM 2 MG/2 ML VIAL ONE ×2 (15:20→15:52)
[2021-05-09] MEDS ORDERED: VANCOMYCIN 500 MG VIAL ONE (16:03)
[2021-05-09] MEDS: LATANOPROST 0.005% OPH SOLN 2.5 ML BOTTLE BOTH EYES SCH (18:45)
[2021-05-09] MEDS: INSULIN REGULAR 100 UNIT/ML SUBCUT SCH ×2 (18:45→22:53)
[2021-05-09] MEDS: ROSUVASTATIN 20 MG TABLET PO SCH (20:54)
[2021-05-10 06:52] LABS: Basophils % 0.2 % (0.0-0.8); Eosinophils # 0.3 10*3/uL (0.0-0.87); Eosinophils % 3.2 % (0.00-10.9); Hematocrit 28.8 VOL% (42.0-52.0); Immature Granulocytes % 2.9 %; Immature Granulocytes Absolute 0.27 #; Lymphocytes # 0.9 10*3/uL (1.4-4.0); Lymphocytes % 10.3 % (21.2-54.2); Mean Corpuscular HGB Conc 31.3 GM/DL (32-36); Mean Corpuscular Volume 94.4 FL (87-102); Mean Platelet Volume 11.1 FL (9.6-12.0); Monocytes % 11.9 % (1.7-12.7); Neutrophils % 71.5 % (38.7-73.9); Platelet Count 266 T/CUMM (130-400); Red Blood Count 3.05 MC/CUMM (3.8-5.5); Red Cell Distribution Width 15.8 % (9.3-17.3); White Blood Count 9.2 T/CUMM (4-12)
[2021-05-10] MEDS: oxyCODONE/ACETAMINOPHEN 5-325 MG TABLET PO PRN (07:03)
[2021-05-10 07:30] LABS: Alanine Aminotransferase 45 U/L (16-61); Albumin 2.6 G/DL (3.4-5.0); Alkaline Phosphatase 120 U/L (45-117); Aspartate Amino Transferase 33 U/L (0-37); Bilirubin,Direct < 0.100 MG/DL (0.0-0.20); Bilirubin,Indirect 0.3 MG/DL (0.0-1.0); Blood Urea Nitrogen 57 MG/DL (7-18); Calcium 9.3 MG/DL (8.5-10.1); Carbon Dioxide 24 MMOL/L (21-32); Estimated Glom Filtration Rate 8 ML/MIN; Glucose 94 MG/DL (74-106); Osmolality,Calculated 285.1 MOS/KG (273-304); Sodium 135 MMOL/L (136-145); Total Protein 7.2 G/DL (6.4-8.2)
[2021-05-10] MEDS: ASPIRIN EC 325 MG TABLET PO SCH (08:52)
[2021-05-10] MEDS: PANTOPRAZOLE 40 MG TABLET PO SCH (08:52)
[2021-05-10] MEDS: FERROUS SULFATE 325 MG TABLET PO SCH (08:52)
[2021-05-10] MEDS: DOCUSATE SODIUM 100 MG CAPSULE PO SCH (08:52)
[2021-05-10] MEDS: POLYETHYLENE GLYCOL POWDER 17 GM PACK PO SCH (08:52)
[2021-05-10] MEDS: allopurinoL 100 MG TABLET PO SCH (08:52)
[2021-05-10] MEDS ORDERED: carvediloL 3.125 MG TABLET PO SCH (09:30)
[2021-05-10] MEDS ORDERED: carvediloL 6.25 MG TABLET PO SCH (09:30)
[2021-05-10] MEDS: INSULIN REGULAR 100 UNIT/ML SUBCUT SCH ×2 (10:00→14:31)
[2021-05-10] MEDS: LATANOPROST 0.005% OPH SOLN 2.5 ML BOTTLE BOTH EYES SCH (10:57)
[2021-05-10 12:19] VITALS: BP 113/76
== END 2021-05-10 14:57 | DRG 233 ==
LOC: N.ED 15:55 → N.EDINP 15:55 → N.TELES 22:09 → N.ICU 04-30 09:53 → N.CVR 05-03 13:43 → N.ICU 05-04 07:16 → N.TELES 05-07 13:00
PROVIDERS: ADMIT Internal Medicine Cardiovascular Disease

== ENCOUNTER 2021-12-26 10:02 | Observation (INO) ==
[2021-12-26 19:55] LABS: Basophils % 0.5 % (0.0-0.8); Eosinophils # 0.5 10*3/uL (0.0-0.87); Eosinophils % 5.3 % (0.00-10.9); Hematocrit 42.3 VOL% (42.0-52.0); Hemoglobin 13.4 GM/DL (14.0-18.0); Immature Granulocytes % 0.4 %; Immature Granulocytes Absolute 0.03 #; Lymphocytes # 1.2 10*3/uL (1.4-4.0); Lymphocytes % 13.6 % (21.2-54.2); Mean Corpuscular HGB Conc 31.7 GM/DL (32-36); Mean Corpuscular Volume 98.1 FL (87-102); Mean Platelet Volume 11.3 FL (9.6-12.0); Monocytes % 7.6 % (1.7-12.7); Neutrophils % 72.6 % (38.7-73.9); Platelet Count 180 T/CUMM (130-400); Red Blood Count 4.31 MC/CUMM (3.8-5.5); Red Cell Distribution Width 17.1 % (9.3-17.3); White Blood Count 8.5 T/CUMM (4-12)
[2021-12-26 21:05] LABS: Albumin 2.8 G/DL (3.4-5.0); Bilirubin,Total 0.6 MG/DL (0.20-1.00); Calcium 9.4 MG/DL (8.5-10.1); Osmolality,Calculated 281.4 MOS/KG (273-304); Total Protein 7.8 G/DL (6.4-8.2)
[2021-12-26 21:19] LABS: Potassium 6.2 MMOL/L (3.5-5.1)
[2021-12-26] MEDS ORDERED: SODIUM POLYSTYRENE SULFATE 15 GM/60 ML BOTTLE PO STA (21:51)
[2021-12-26] MEDS ORDERED: DEXTROSE 50% 25 GM/50 ML VIAL IV STA (21:51)
[2021-12-26] MEDS ORDERED: INSULIN REGULAR 100 UNIT/ML IV STA (21:51)
[2021-12-26] MEDS ORDERED: ASPIRIN EC 325 MG TABLET PO STA (21:52)
[2021-12-26] MEDS ORDERED: DEXTROSE 50% 25 GM/50 ML SYRINGE IV STA (21:54)
[2021-12-26] MEDS ORDERED: MORPHINE 2 MG/1 ML SYRINGE IV PRN (22:39)
[2021-12-26] MEDS ORDERED: ACETAMINOPHEN 325 MG TABLET PO PRN (22:39)
[2021-12-26] MEDS ORDERED: DEXTROSE 10% 250 ML BAG IV PRN (22:39)
[2021-12-26] MEDS ORDERED: GLUCAGON 1 MG VIAL IM PRN (22:39)
[2021-12-26] MEDS ORDERED: ONDANSETRON 4 MG/2 ML VIAL IV PRN (22:39)
[2021-12-27 05:02] LABS: Basophils # 0.1 10*3/uL (0.0-0.2); Basophils % 0.6 % (0.0-0.8); Eosinophils # 0.4 10*3/uL (0.0-0.87); Eosinophils % 4.7 % (0.00-10.9); Hematocrit 38.1 VOL% (42.0-52.0); Hemoglobin 12.3 GM/DL (14.0-18.0); Immature Granulocytes % 0.5 %; Immature Granulocytes Absolute 0.04 #; Lymphocytes % 12.4 % (21.2-54.2); Mean Corpuscular HGB Conc 32.3 GM/DL (32-36); Mean Corpuscular Volume 96.9 FL (87-102); Mean Platelet Volume 10.7 FL (9.6-12.0); Neutrophils % 72.8 % (38.7-73.9); Platelet Count 169 T/CUMM (130-400); Red Blood Count 3.93 MC/CUMM (3.8-5.5); Red Cell Distribution Width 16.6 % (9.3-17.3); White Blood Count 8.1 T/CUMM (4-12)
[2021-12-27 05:57] LABS: Calcium 9.6 MG/DL (8.5-10.1); Osmolality,Calculated 278.7 MOS/KG (273-304); Potassium 4.8 MMOL/L (3.5-5.1); Risk Ratio 1.84; Thyroid Stimulating Hormone 2.33 uIU/ml (0.358-3.74)
[2021-12-27] MEDS ORDERED: PANTOPRAZOLE 40 MG TABLET PO SCH (09:00)
[2021-12-27] MEDS ORDERED: ASPIRIN EC 81 MG TABLET PO SCH (09:00)
[2021-12-27] MEDS ORDERED: LATANOPROST 0.005% OPH SOLN 2.5 ML BOTTLE BOTH EYES SCH (09:00)
[2021-12-27] MEDS ORDERED: CETIRIZINE 10 MG TABLET PO SCH (09:00)
[2021-12-27] MEDS ORDERED: NITROGLYCERIN SL 0.4 MG TABLET SL PRN (09:41)
[2021-12-27] MEDS: SEVELAMER CARBONATE 800 MG TABLET PO SCH ×3 (10:15→18:04)
[2021-12-27] MEDS: INSULIN LISPRO 100 UNIT/ML SUBCUT SCH ×3 (10:15→17:10)
[2021-12-27] MEDS: DOCUSATE SODIUM 100 MG CAPSULE PO SCH ×2 (10:31→21:11)
[2021-12-27] MEDS: carvediloL 6.25 MG TABLET PO SCH ×2 (10:31→21:05)
[2021-12-27] MEDS: APIXABAN 5 MG TABLET PO SCH ×2 (10:32→21:05)
[2021-12-27 10:49] LABS: Cancer Antigen 19-9 < 1.20 U/ML (0-35)
[2021-12-27] MEDS ORDERED: LIDOCAINE/PRILOCAINE CREAM 5 GM TUBE TOP STA (13:30)
[2021-12-27] MEDS ORDERED: HEPARIN 10,000 UNIT/10 ML VIAL IV ONE (16:00)
[2021-12-27] MEDS ORDERED: ROSUVASTATIN 20 MG TABLET PO SCH (21:00)
[2021-12-28 01:43] VITALS: BP 106/58
== END 2021-12-27 22:18 | disposition expired ==
LOC: N.EDINP 10:02 → N.ED 10:02 → N.TELEN 23:54
PROVIDERS: ADMIT Internal Medicine Geriatric Medicine; ATTEND Internal Medicine Geriatric Medicine